=== PATIENT | male | born 1995 | race Caucasian/White ===

== ENCOUNTER 2016-10-22 10:48 | Day surgery (SDC) | payer OTHER ==
--- NOTE | 2016-10-19 13:22 | EKG REPORT ---
SEVERITY:- ABNORMAL ECG - SINUS RHYTHM PVC IVCD. : Confirmed by: Wilver Hall MD 19-Oct-2016 13:21:44
[~2016-10-22 10:48] MED LIST: DEXAMETHASONE SOD PHOSPHATE INJ 4 MG/1 ML VIAL ONE; LACTATED RINGERS 1000 ML IV PRN; LIDOCAINE 0.5% INJ-PF (5 MG/ML) 50 ML SDV SUBCUT PRN; LIDOCAINE 2% INJ-PF (20 MG/ML) 10 ML AMPUL ONE; ONDANSETRON HCL INJ/PF 4 MG/2 ML SDV ONE
[2016-10-22] MEDS ORDERED: BUPIVACAINE HCL 0.25 % INJ/PF (2.5 MG/1 ML) 30 ML VIAL ONE (13:42)
[2016-10-22] MEDS ORDERED: HYDROMORPHONE HCL INJ/PF 2 MG/ML AMPULE ONE (13:45)
[2016-10-22] MEDS ORDERED: FENTANYL CITRATE INJ/PF 100 MCG/2 ML AMPUL ONE (13:46)
[2016-10-22] MEDS ORDERED: MIDAZOLAM 2 MG/2 ML INJ ONE (13:46)
[2016-10-22] MEDS ORDERED: PROPOFOL INJ 200 MG/20 ML VIAL IV ONE (13:46)
[2016-10-22] MEDS ORDERED: CLINDAMYCIN 900 MG/D5W RTU 50 ML IV ONE (14:25)
[2016-10-22] MEDS ORDERED: FENTANYL CITRATE INJ/PF 100 MCG/2 ML AMPUL IV PRN ×3 (14:41)
[2016-10-22] MEDS ORDERED: DIPHENHYDRAMINE HCL 50 MG/ML VIAL IV PRN (14:41)
[2016-10-22] MEDS ORDERED: MEPERIDINE HCL/PF INJ 25 MG/1 ML DISP.SYRIN IV PRN (14:41)
[2016-10-22] MEDS ORDERED: PROMETHAZINE HCL INJ 25 MG/1 ML VIAL IV PRN (14:41)
[2016-10-22] MEDS ORDERED: MORPHINE SULFATE 10 MG/ML INJ IV PRN (14:41)
[2016-10-22] MEDS ORDERED: HYDROMORPHONE HCL INJ/PF 2 MG/ML AMPULE IV PRN (15:55)
[2016-10-22] MEDS ORDERED: OXYCODONE-ACETAMINOPHEN 5-325 MG TABLET PO PRN (15:55)
[2016-10-22] MEDS ORDERED: ONDANSETRON HCL INJ/PF 4 MG/2 ML SDV IV PRN (15:56)
[2016-10-22] MEDS: FENTANYL CITRATE INJ/PF 100 MCG/2 ML AMPUL ONE ×2 (16:30→16:35)
--- NOTE | 2016-10-22 16:58 | OPERATIVE REPORT E ---
Operative Report NAME: MARY JACKSON : 1995 AGE: 20Y DATE OF SURGERY: 10/22/2016 ROOM: PREOPERATIVE DIAGNOSIS: Left hydrocele. POSTOPERATIVE DIAGNOSIS: Left hydrocele. OPERATION: Left hydrocelectomy. SURGEON: MACIEJ BROWNE D.O. INSTRUCTOR HAIRSPRING: Dr. Josue Zavala ANESTHESIA: General. INTRAVENOUS FLUIDS: 700 mL lactated Ringer's. ESTIMATED BLOOD LOSS: 5 mL. URINE OUTPUT: 0. DRAINS: A 0.25 inch Joanne drain in the left scrotum. IMPLANTS: None. COMPLICATIONS: None. FINDINGS: Complex left hydrocele. INDICATIONS FOR PROCEDURE: The patient is a 20-year-old male with a longstanding history of left hydrocele. He was counseled on the risks, benefits, and side effects of a left-sided hydrocelectomy and consented to proceed. DESCRIPTION OF PROCEDURE: The patient was met in the preoperative holding area. Risks, benefits, and side effects of a left-sided hydrocelectomy were again reviewed with the patient who consented to proceed. He was brought to the operative theater and placed on the table in supine position where general anesthesia was induced. He was then sterilely prepped and draped in the usual fashion. A timeout was performed to ensure proper patient, proper procedure, proper laterality being the left, and that preoperative antibiotics had been administered. With all in agreement, we proceeded. An approximately 5 cm incision was made transversely across the left hemisphere and deepened down to the tunica vaginalis which was thickened and scarred with several layers. With meticulous nature, we bluntly dissected through the layers of the tunica that had been scarred from the hydrocele and then cut through them with electrocautery. Once this was completed, there were several large vessels around the hydrocele that required to be tied with 3-0 silk ties as well. We then entered the hydrocele sac sharply with Metzenbaum scissors and evacuated the fluid inside. We then longitudinally incised it with electrocautery and excised 50% of the sac and set it from the field for pathologic examination. We then *------* the sac and put it behind the spermatic cord and secured it in place with a running 3-0 Vicryl suture. The edges were also cauterized to ensure hemostasis. A 0.25 inch Joanne drain was then placed deep in the portion of the left scrotum and secured in place with 2-0 silk suture. The testicle was returned to the scrotum in the *------* position. Dartos was closed with a running 3-0 Vicryl suture and then the skin closed with a running 4-0 Monocryl in a horizontal mattress fashion. This was then sealed with Dermabond. Fluff gauze and scrotal support were then applied. The patient was awakened and taken to the PACU in good condition. He tolerated the procedure well. At the conclusion of the case, instrument and sponge counts were complete and correct. DICTATING PHYSICIAN: MACIEJ BROWNE D.O. [id number] PHY#: [id number] ID: [id number] JOB#: [id number] ACCT: [id number] cc:MACIEJ BROWNE D.O. >
[2016-10-22 18:40] VITALS: BP 115/69
== END 2016-10-22 18:35 | disposition home or self-care (01) ==
LOC: OROUT 10:48
PROVIDERS: ATTEND Surgery
PROC: 0VBG0ZZ Excision of Left Spermatic Cord, Open Approach (ICD-10-PCS; principal; 2016-10-22 13:00)
DX: N43.3 Hydrocele, unspecified (principal); I49.9 Cardiac arrhythmia, unspecified; F17.210 Nicotine dependence, cigarettes, uncomplicated
CPT/HCPCS: 93005; 88304 ×2; 93010; 55500; J2250; J1100; J3010; J1170; J2405; J2704; J3490; 920